=== PATIENT | male | born 1950 | race Caucasian/White ===

== ENCOUNTER 2020-12-24 08:52 | Day surgery (SDC) | payer MEDICARE, MEDICAID, SELFPAY ==
--- NOTE | 2020-12-24 06:56 | W.ANESPRE ---
General Info Date of Service Date Performed: 12/24/20 Height: 6 ft 1 in Weight: 108.862 kg Body Mass Index (BMI): 31.6 Surgical Procedure: Operation Date: 12/24/20 11:40 Proposed Procedures Side Surgeon p Cataract Extraction with IOL Implant Bobby Morrow MD Meds Allergies and Home Medications Allergies Allergy/AdvReac Type Severity Reaction Status Date / Time adhesive tape Allergy Unknown Unverified 12/24/20 09:13 cefuroxime Allergy Unknown Skin Rash Unverified 12/24/20 09:13 doxycycline Allergy Unknown Skin Rash Unverified 12/24/20 09:13 erythromycin base Allergy Unknown Skin Rash Unverified 12/24/20 09:13 moxifloxacin Allergy Unknown Unverified 12/24/20 09:13 silver sulfadiazine Allergy Unknown Unverified 12/24/20 09:13 Tetracyclines Allergy Unknown Skin Rash Unverified 12/24/20 09:13 trimethoprim Allergy Unknown Skin Rash Unverified 12/24/20 09:13 Durapore Allergy Unknown Uncoded 12/24/20 09:13 Tegaderm Allergy Unknown Uncoded 12/24/20 09:13 Home Medication Medication Instructions Recorded acetaminophen 500 mg PO Q6H PRN 12/19/20 albuterol sulfate 2 puff INHALATION Q6H PRN 12/19/20 ascorbic acid (vitamin C) 500 mg PO DAILY 12/19/20 aspirin [Aspir-81] 81 mg PO DAILY 12/19/20 benazepril 20 mg PO DAILY 12/19/20 cilostazol 100 mg PO BID 12/19/20 fenofibrate nanocrystallized 145 mg PO DAILY 12/19/20 ferrous sulfate 142 mg PO DAILY 12/19/20 finasteride 5 mg PO DAILY 12/19/20 gabapentin 600 mg PO HS 12/19/20 levothyroxine 137 mcg PO DAILY 12/19/20 metformin 500 mg PO BID 12/19/20 pantoprazole 40 mg PO BID 12/19/20 rivaroxaban [Xarelto] 20 mg PO DAILY 12/19/20 umeclidinium-vilanterol [Anoro 1 inh INHALATION DAILY 12/19/20 Ellipta] Current Visit Medications: Current Medications Generic Name Dose Route Start Last Admin Trade Name Freq PRN Reason Stop Dose Admin Acetaminophen 1,000 mg 12/24/20 06:00 Acetaminophen 500 Mg Tab PO Q4H PRN PRN Miscellaneous Medication 0 ml 12/24/20 06:00 Prednisolone 1%, Moxifloxacin 0.5%, Nepafenac 0.1% 5ml Btl OD DIRECTED [facility] Miscellaneous Medication 0 ml 12/24/20 06:00 Tropicam./Phenyleph. (1/2.5%) 5 Ml Btl OD DIRECTED [facility] Tetracaine HCl 0 ml 12/24/20 06:00 Tetracaine 0.5% 4 Ml Btl OD DIRECTED [facility] Medical History Medical History Anemia of chronic disease, persistent normocytic anemia/thrombocytosis Balanoposthitis Bilateral cataracts Bursitis Cellulitis COPD (chronic obstructive pulmonary disease) Degenerative lumbar spinal stenosis Dermatitis Diabetes mellitus with neuropathy Dropfoot Encounter for screening for malignant neoplasm of prostate Essential (primary) hypertension Fissure in skin of foot Fracture of right upper extremity with malunion GERD without esophagitis Hyperlipidemia Hypomagnesemia Hypothyroidism Left foot pain Lumbar spinal stenosis Nicotine dependence in remission Onychomycosis Osteoarthritis of both hips Peripheral edema Pes planovalgus Plantar fascial fibromatosis Posterior tibial tendonitis Radiculopathy, lumbar region Renal insufficiency Retention of urine, unspecified Rib fracture RLS (restless legs syndrome) Skin ulcer R leg venous stasis ulcer, debride left medial ankle per note Wound center q wk-May 2018 maggot in wound Sore in mouth Thrombocytosis Varicose veins of both lower extremities with complications Venous stasis Vitamin D deficiency Surgical History Surgical History History of esophagogastroduodenoscopy (EGD) History of lumbar laminectomy Hx of arthroscopy of knee Hx of arthroscopy of shoulder Hx of colonoscopy with polypectomy Hx of sinus surgery Hx of varicose vein ligation and stripping S/P excision of varicocele Tobacco Smoking/Tobacco Use Status: Former Tobacco Use Alcohol Alcohol Intake: former Substance Use Substance use type: does not use Vital Signs and Lab Results Vital Signs Most Recent Vital Signs in EMR: Temp Pulse Resp BP Pulse Ox 36.1 C L 67 16 154/81 H 99 12/24/20 09:05 12/24/20 09:05 12/24/20 09:05 12/24/20 09:05 12/24/20 09:05 Lab Results Blood Type / Crossmatch: No Data to Display Complete Blood Count: No Data to Display Complete Metabolic Panel: No Data to Display Liver Function Panel: No Data to Display Coagulation Panel: No Data to Display Cardiac Panel: No Data to Display Arterial Blood Gas: No Data to Display Venous Blood Gas: No Data to Display Pancreas Panel: No Data to Display Thyroid Panel: No Data to Display Infectious Disease: No Data to Display Blood Cultures: No Data to Display Toxicology Panel: No Data to Display Anesthesia Assessment and Plan Anesthesia History Personal History: No History of Anesthesia Complications Family History: No Family History of Anesthesia Complications Exercise Tolerance Exercise Tolerance: Metabolic Equivalents>4 Cardiac & Pulmonary Exam Cardiac Exam: Normal S1/S2 Heart Sounds Pulmonary Exam: Clear Bilateral Breath Sounds Airway Exam Known Difficult Airway: No Mallampati Class: 3 Mouth Opening: Normal (> 3cm) Thyromental Distance: Greater than 3 cm Facial Hair: Full Sanderson Neck Range of Motion: Limited ROM Neck Circumference: Normal Teeth Condition: Loose or Chipped ASA Classification ASA Score: ASA 2 Emergency Case?: No NPO Status NPO Status: NPO Clears >2 hours, Solids >8 hours Anesthesia Plan Resuscitation Status: Full Code Anesthesia Technique: MAC Anesthesia Airway Planned: Natural Airway Monitors Used: Standard Monitors Preoperative Comments:: 70 yo male for cataract removal. discussed risks, benefits, and alternatives to MKO, plan for no MKO sig PMHx: COPD, DM with neuropathy, HTN, hypothyroid, spinal stenosis, RL.
[2020-12-24 09:05] VITALS: BP 154/81; PULSE 67; RESP 16; TEMP 36.1; O2SAT 99
[2020-12-24] MEDS: Tropicam./Phenyleph. (1/2.5%) 5 ML BTL OD ×3 (09:11→09:25)
[2020-12-24 09:35] VITALS: BMI 31.6
[2020-12-24] MEDS: Tetracaine 0.5% 4 ML BTL OD (10:18)
[2020-12-24] MEDS: Povidone-Iodine Ophth 30 ML BTL (10:18)
[2020-12-24] MEDS: Lidocaine 2% Jelly 6 ML SYR (10:19)
[2020-12-24] MEDS: Balanced Salt Soln.-PLUS 500 ML BAG (10:28)
[2020-12-24] MEDS: Duovisc Viscoelastic System EACH 1 EACH (10:29)
[2020-12-24] MEDS: Lidocaine 1% Pres-Free 5 ML VIAL (10:31)
[2020-12-24] MEDS: Trypan Blue 0.06% 0.5 ML SYR (10:33)
[2020-12-24 10:51] VITALS: BP 144/86; PULSE 69; RESP 16; TEMP 36.3; O2SAT 97
--- NOTE | 2020-12-24 10:52 | ROE_ITS ---
Date of service: 12/24/20 Time of Service: 10:53 Operative Note Operative Note DATE OF PROCEDURE: 12/24/20 PRE-OP DIAGNOSIS: Dense nuclear/cortical cataract, right eye Poor red reflex, right eye secondary to cataract POST-OP DIAGNOSIS: same PROCEDURE: Cataract extraction using phacoemulsification with intraocular lens implantation, right eye, using capsular staining with Vision Blue SURGEON: Bobby Morrow ANESTHESIA TYPE: Local By Surgeon and MAC Refer to Anesthesia Record PATHOLOGY: none sent COMPLICATIONS: None Patient was transported to: same day Patient's condition: stable Implants: [employer] Rob[employer] / [employer] Tecnis [id number] Indications: Progressive visual loss due to cataract, right eye Procedure Description: CATARACT SURGERY OPERATIVE REPORT PREOPERATIVE DIAGNOSIS: 1. Nuclear/cortical cataract, right eye 2. Poor red reflex secondary to #1 POSTOPERATIVE DIAGNOSIS: Same OPERATION: 1. Cataract extraction using phacoemulsification with posterior chamber intraocular lens implant, right eye. 2. Capsular staining with Vision Blue IOL: IOL Manager Data Warehousing/Model: [employer] Robby / SOREN Tecnis [id number] IOL Power: + 20.0 diopters IOL Serial Number: [id number] Optic Diameter: 6.0mm Haptic/Overall Diameter: 13.0mm PHACO INFO: Hemal Centurion Vision System with OZil and Active Fluidics Cumulative Dispersed Energy (CDE): 15.44 seconds SURGEON: Bobby Morrow MD, AYAD ANESTHESIA: Monitored Anesthesia Care (MAC), with local sub-tenon's anesthetic infiltration COMPLICATIONS: None SPECIMENS: None INDICATIONS FOR PROCEDURE: The patient is a 70-year-old gentleman with history of diminished visual acuity in his right eye secondary to the development of dense nuclear and cortical cataract. He significantly symptomatic that he desires cataract surgery and attempt to improve and maximize his vision. Of note, he has history of moxif loxacin allergy, causing a rash with oral moxifloxacin. The option of cataract surgery was offered to the patient and he wished to proceed. PROCEDURE: The correct surgical eye was identified and marked as the right eye and the pupil was dilated in the preoperative area using mydriatics and cycloplegics. The dilated pupil size was 5.5 mm. He elected to proceed without oral sedation.. The patient was brought to the operating room where cardiopulmonary monitoring was instituted and surgical time-out was performed, confirming the correct operative eye and IOL power. Topical anesthesia was administered and ophthalmic povidone-iodine 5% was instilled into the conjunctival fornices. Lidocaine gel was applied to the cornea and the yves-ocular area was prepped with Betadine 10% solution and draped in the usual sterile fashion for intraocular surgery, including an aperture drape. A Tegaderm transparent film dressing was cut in half and used to cover the lashes and lid margins. Care was taken to sequester the lashes and lid margins under the Tegaderm dressing. A lid speculum was placed between the lids of the operative eye and the Tanya-Capri operating microscope was maneuvered into position. Alek scissors were then used to make a conjunctival buttonhole approximately 6mm posterior to the limbus in the inferonasal quadrant. Blunt dissection was carried out to expose bare sclera, and a blunt-tipped sub-tenon?s anesthesia cannula was introduced and passed posteriorly along the globe where non- preserved plain lidocaine was injected into posterior sub-Tenon?s space. A sideport knife was used to make a paracentesis port inferotemporally. Intraocular phenylephrine/lidocaine was injected into the anterior chamber. Air was injected into the anterior chamber, followed by Vision Blue, which was painted over the anterior capsule and then irrigated out with BSS. The anterior chamber was filled with viscoelastic. A 2.4mm keratome knife was used to create a half-thickness groove at the limbus and then to construct a three-plane near- clear corneal tunnel extending 2.0mm into clear cornea superiortemporally. A flap was raised on the anterior capsule and capsulorhexis forceps were used to complete a continuous curvilinear capsulorhexis of 5.0 mm. Balanced salt solution was then used to perform cortical cleaving hydrodissection and nuclear hydrodelineation until the lens could be freely rotated within the capsular bag. The lens nucleus was then disassembled and removed within the capsular bag and iris plane using phacoemulsification. Res idual cortical material was removed using the I/A handpiece. The posterior capsule was carefully polished to remove as much residual lens epithelial cells as safely possible. The capsular bag was then inflated and the anterior chamber deepened with viscoelastic. The lens implant described above was inserted into the capsular bag using the SOREN Nulato Injector. A Kuglen hook was used to dial the IOL into position. Residual viscoelastic was then removed first from posterior to the IOL, then from the anterior chamber using the I/A handpiece. The lens implant was noted to center nicely within the capsular bag. The incisions were stromally hydrated, and the anterior chamber was reformed using BSS. The incisions were checked with a Weck spear and found to be secure. Several drops of ophthalmic povidone- iodine 5% were then applied to the eye followed by two drops of Imprimis combination prednisolone/moxifloxacin/nepafenac solution. The drapes were removed and a clear plastic protective eye shield was placed over the eye. The patient was then returned to Same Day Surgery in stable condition.
--- NOTE | 2020-12-24 10:52 | W.PM.DSUDISC ---
Discharge Plan Disposition Patient Disposition: HOME Condition: Good Discharge Details Reason For Visit: Cataract Attending Provider: Bobby Morrow Primary Care Provider: Brenda Hoffman Home Meds and New Rx's Prescriptions: No Action cilostazol 100 mg tablet 100 mg PO BID RF: 0 levothyroxine 137 mcg tablet 137 mcg PO DAILY RF: 0 aspirin [Aspir-81] 81 mg Tablet,Delayed Release (Dr/Ec) 81 mg PO DAILY RF: 0 acetaminophen 500 mg Tablet 500 mg PO Q6H PRNRF: 0 ascorbic acid (vitamin C) 500 mg Tablet 500 mg PO DAILY RF: 0 pantoprazole 40 mg tablet,delayed release (DR/EC) 40 mg PO BID RF: 0 gabapentin 300 mg capsule 600 mg PO HS RF: 0 benazepril 20 mg tablet 20 mg PO DAILY RF: 0 albuterol sulfate 90 mcg/actuation Hfa Aerosol Inhaler 2 puff INHALATION Q6H PRNRF: 0 metformin 500 mg tablet extended release 24 hr 500 mg PO BID RF: 0 finasteride 5 mg tablet 5 mg PO DAILY RF: 0 fenofibrate nanocrystallized 145 mg tablet 145 mg PO DAILY RF: 0 ferrous sulfate 142 mg (45 mg iron) Tablet Extended Release 142 mg PO DAILY RF: 0 Xarelto 20 mg tablet 20 mg PO DAILY RF: 0 Anoro Ellipta 62.5-25 mcg/actuation blister with device 1 inh INHALATION DAILY RF: 0 Discharge Instructions Stand Alone Forms: Post-op Topical Cataract, Janny Torres (DSU) Discharge Orders Discharge Orders: Discharge Order (Routine); Ordered 12/24/20 Ordered By: Bobby Morrow DS: Diagnosis Discharge Diagnosis (1) Nuclear sclerotic cataract of right eye: Status: Resolved (2) Cortical cataract of right eye: Status: Resolved
--- NOTE | 2020-12-24 11:14 | W.ANESPOSTOP ---
Postoperative Evaluation Date, Time and Location Date Performed: 12/24/20 Time Performed: 11:14 Patient Location: Day Surgery Unit Vital Signs Most Recent Imported Vital Signs: Most Recent Vital Signs Temp Pulse Resp BP Pulse Ox 36.3 C L 69 16 144/86 H 97 12/24/20 10:51 12/24/20 10:51 12/24/20 10:51 12/24/20 10:51 12/24/20 10:51 Pain Score Most Recent Pain Score: Most Recent Pain Score Pain Level 0 12/24/20 10:51 Assessment Mental Status: Awake (Alert & Oriented to Patient Baseline) Airway and Respiratory Function: Patent airway with normal (patient baseline) respiratory exam Cardiovascular Function: Hemodynamically Stable Hydration Status: Adequately Hydrated Nausea & Vomiting: No Nausea or Vomiting Pain: Pt. Denies Any Pain Peripheral Nerve Block: Patient did not receive a nerve block
== END 2020-12-24 11:42 | disposition home or self-care (01) ==
PROVIDERS: PCP Physician Assistant; Visit Provider Ophthalmology
PROC: (CPT 66984; principal; 2020-12-24 11:30)
DX: H25.11 Age-related nuclear cataract, right eye (principal); E11.42 Type 2 diabetes mellitus with diabetic polyneuropathy; I10 Essential (primary) hypertension
CPT/HCPCS: 66984; V2632

== ENCOUNTER 2021-01-04 02:45 | Outpatient (CLI) | payer MEDICARE, SELFPAY ==
[2021-01-04 12:57] LABS: Source Nasal/Nares
[2021-01-04 16:58] LABS: COVID-19 PCR Negative (Negative)
== END 2021-01-04 02:46 | disposition home or self-care (01) ==
LOC: LBO 02:45
PROVIDERS: PCP Physician Assistant; Visit Provider Ophthalmology
DX: Z20.822 Contact with and (suspected) exposure to COVID-19 (principal); Z01.812 Encounter for preprocedural laboratory examination
CPT/HCPCS: 87635

== ENCOUNTER 2021-01-07 11:09 | Day surgery (SDC) | payer MEDICARE, MEDICAID, SELFPAY ==
[2021-01-07 11:31] VITALS: BP 156/92; PULSE 74; RESP 16; TEMP 36.2; O2SAT 98
--- NOTE | 2021-01-07 11:37 | W.ANESPRE ---
General Info Date of Service Date Performed: 01/07/21 Height: 6 ft 1 in Weight: 106.4 kg Body Mass Index (BMI): 30.9 Surgical Procedure: Operation Date: 01/07/21 14:40 Proposed Procedures Side Surgeon p Cataract Extraction with IOL Implant Bobby Morrow MD Meds Allergies and Home Medications Allergies Allergy/AdvReac Type Severity Reaction Status Date / Time adhesive tape Allergy Unknown Unverified 01/03/21 15:38 cefuroxime Allergy Unknown Skin Rash Unverified 01/03/21 15:38 doxycycline Allergy Unknown Skin Rash Unverified 01/03/21 15:38 erythromycin base Allergy Unknown Skin Rash Unverified 01/03/21 15:38 moxifloxacin Allergy Unknown Unverified 01/03/21 15:38 silver sulfadiazine Allergy Unknown Unverified 01/03/21 15:38 Tetracyclines Allergy Unknown Skin Rash Unverified 01/03/21 15:38 trimethoprim Allergy Unknown Skin Rash Unverified 01/03/21 15:38 Durapore Allergy Unknown Uncoded 01/03/21 15:38 Tegaderm Allergy Unknown Uncoded 01/03/21 15:38 Home Medication Medication Instructions Recorded acetaminophen 500 mg PO Q6H PRN 12/19/20 albuterol sulfate 2 puff INHALATION Q6H PRN 12/19/20 ascorbic acid (vitamin C) 500 mg PO DAILY 12/19/20 aspirin [Aspir-81] 81 mg PO DAILY 12/19/20 benazepril 20 mg PO DAILY 12/19/20 cilostazol 100 mg PO BID 12/19/20 fenofibrate nanocrystallized 145 mg PO DAILY 12/19/20 ferrous sulfate 142 mg PO DAILY 12/19/20 finasteride 5 mg PO DAILY 12/19/20 gabapentin 600 mg PO HS 12/19/20 levothyroxine 137 mcg PO DAILY 12/19/20 metformin 500 mg PO BID 12/19/20 pantoprazole 40 mg PO BID 12/19/20 rivaroxaban [Xarelto] 20 mg PO DAILY 12/19/20 umeclidinium-vilanterol [Anoro 1 inh INHALATION DAILY 12/19/20 Ellipta] Current Visit Medications: Current Medications Generic Name Dose Route Start Last Admin Trade Name Freq PRN Reason Stop Dose Admin Acetaminophen 1,000 mg 01/07/21 06:00 Acetaminophen 500 Mg Tab PO Q4H PRN PRN Miscellaneous Medication 0 ml 01/07/21 06:00 Prednisolone 1%, Moxifloxacin 0.5%, Nepafenac 0.1% 5ml Btl OS DIRECTED [facility] Miscellaneous Medication 0 ml 01/07/21 06:00 Tropicam./Phenyleph. (1/2.5%) 5 Ml Btl OS DIRECTED [facility] Tetracaine HCl 0 ml 01/07/21 06:00 Tetracaine 0.5% 4 Ml Btl OS DIRECTED [facility] PFSH Active Problems Active Problems: Problem Status Onset Code Cortical cataract of left eye H26.9 Nuclear sclerotic cataract of left eye H25.12 Nuclear sclerotic cataract of right eye H25.11 Cortical cataract of right eye H26.9 Medical History Medical History Anemia of chronic disease, persistent normocytic anemia/thrombocytosis Balanoposthitis Bilateral cataracts Bursitis Cellulitis COPD (chronic obstructive pulmonary disease) Degenerative lumbar spinal stenosis Dermatitis Diabetes mellitus with neuropathy Dropfoot Encounter for screening for malignant neoplasm of prostate Essential (primary) hypertension Fissure in skin of foot Fracture of right upper extremity with malunion GERD without esophagitis Hyperlipidemia Hypomagnesemia Hypothyroidism Left foot pain Lumbar spinal stenosis Nicotine dependence in remission Onychomycosis Osteoarthritis of both hips Peripheral edema Pes planovalgus Plantar fascial fibromatosis Posterior tibial tendonitis Radiculopathy, lumbar region Renal insufficiency Retention of urine, unspecified Rib fracture RLS (restless legs syndrome) Skin ulcer R leg venous stasis ulcer, debride left medial ankle per note Wound center q wk-May 2018 maggot in wound Sore in mouth Thrombocytosis Varicose veins of both lower extremities with complications Venous stasis Vitamin D deficiency Surgical History Surgical History History of esophagogastroduodenoscopy (EGD) History of lumbar laminectomy Hx of arthroscopy of knee Hx of arthroscopy of shoulder Hx of colonoscopy with polypectomy Hx of sinus surgery Hx of varicose vein ligation and stripping S/P excision of varicocele Tobacco Smoking/Tobacco Use Status: Former Tobacco Use Alcohol Alcohol Intake: former Substance Use Substance use type: does not use Vital Signs and Lab Results Vital Signs Most Recent Vital Signs in EMR: Most Recent Vital Signs Temp Pulse Resp BP Pulse Ox 36.2 C L 74 16 156/92 H 98 01/07/21 11:31 01/07/21 11:31 01/07/21 11:31 01/07/21 11:31 01/07/21 11:31 Point of Care Results Point of Care Results: Blood sugar 133 Lab Results Blood Type / Crossmatch: No Data to Display Complete Blood Count: No Data to Display Complete Metabolic Panel: No Data to Display Liver Function Panel: No Data to Display Coagulation Panel: No Data to Display Cardiac Panel: No Data to Display Arterial Blood Gas: No Data to Display Venous Blood Gas: No Data to Display Pancreas Panel: No Data to Display Thyroid Panel: No Data to Display Infectious Disease: Coronavirus (COVID-19)(PCR) Negative (Negative) 01/04/21 10:35 01/04/21 Coronavirus 2019 Source Nasal/Nares 01/04/21 10:35 01/04/21 Blood Cultures: No Data to Display Toxicology Panel: No Data to Display Anesthesia Assessment and Plan Anesthesia History Personal History: No History of Anesthesia Complications Family History: No Family History of Anesthesia Complications Exercise Tolerance Exercise Tolerance: Metabolic Equivalents>4 Cardiac & Pulmonary Exam Cardiac Exam: Normal S1/S2 Heart Sounds Pulmonary Exam: Clear Bilateral Breath Sounds Airway Exam Known Difficult Airway: No Mallampati Class: 3 Mouth Opening: Normal (> 3cm) Thyromental Distance: Greater than 3 cm Facial Hair: Full Sanderson Neck Range of Motion: Limited ROM Neck Circumference: Normal Teeth Condition: Loose or Chipped ASA Classification ASA Score: ASA 2 Emergency Case?: No NPO Status NPO Status: NPO Clears >2 hours, Solids >8 hours Anesthesia Plan Resuscitation Status: Full Code Anesthesia Technique: MAC Anesthesia Airway Planned: Natural Airway Monitors Used: Standard Monitors Preoperative Comments:: 70 yo male for cataract removal. discussed risks, benefits, and alternatives to MKO, plan for no MKO sig PMHx: COPD, DM with neuropathy, HTN, hypothyroid, spinal stenosis, RL.
[2021-01-07 11:41] VITALS: BMI 30.9
[2021-01-07] MEDS: Tropicam./Phenyleph. (1/2.5%) 5 ML BTL OS ×3 (11:43→11:54)
[2021-01-07] MEDS: Tetracaine 0.5% 4 ML BTL OS (12:45)
[2021-01-07] MEDS: Balanced Salt Soln.-PLUS 500 ML BAG (12:46)
[2021-01-07] MEDS: Duovisc Viscoelastic System EACH 1 EACH (12:46)
[2021-01-07] MEDS: Lidocaine 2% Jelly 6 ML SYR (12:47)
[2021-01-07] MEDS: Lidocaine 1% Pres-Free 5 ML VIAL (12:47)
[2021-01-07] MEDS: Povidone-Iodine Ophth 30 ML BTL (12:49)
[2021-01-07 13:03] VITALS: BP 152/100; PULSE 74; RESP 16; TEMP 36.5; O2SAT 98
--- NOTE | 2021-01-07 13:04 | W.PM.DSUDISC ---
Discharge Plan Disposition Patient Disposition: HOME Condition: Good Discharge Details Attending Provider: Bobby Morrow Primary Care Provider: Brenda Hoffman Home Meds and New Rx's Prescriptions: No Action cilostazol 100 mg tablet 100 mg PO BID RF: 0 levothyroxine 137 mcg tablet 137 mcg PO DAILY RF: 0 aspirin [Aspir-81] 81 mg Tablet,Delayed Release (Dr/Ec) 81 mg PO DAILY RF: 0 acetaminophen 500 mg Tablet 500 mg PO Q6H PRNRF: 0 ascorbic acid (vitamin C) 500 mg Tablet 500 mg PO DAILY RF: 0 pantoprazole 40 mg tablet,delayed release (DR/EC) 40 mg PO BID RF: 0 gabapentin 300 mg capsule 600 mg PO HS RF: 0 benazepril 20 mg tablet 20 mg PO DAILY RF: 0 albuterol sulfate 90 mcg/actuation Hfa Aerosol Inhaler 2 puff INHALATION Q6H PRNRF: 0 metformin 500 mg tablet extended release 24 hr 500 mg PO BID RF: 0 finasteride 5 mg tablet 5 mg PO DAILY RF: 0 fenofibrate nanocrystallized 145 mg tablet 145 mg PO DAILY RF: 0 ferrous sulfate 142 mg (45 mg iron) Tablet Extended Release 142 mg PO DAILY RF: 0 Xarelto 20 mg tablet 20 mg PO DAILY RF: 0 Anoro Ellipta 62.5-25 mcg/actuation blister with device 1 inh INHALATION DAILY RF: 0 Discharge Instructions Stand Alone Forms: Post-op Topical Cataract, Janny Torres (DSU) Discharge Orders Discharge Orders: Discharge Order (Routine); Ordered 01/07/21 Ordered By: Bobby Morrow DS: Diagnosis Discharge Diagnosis (1) Cortical cataract of left eye: Status: Resolved (2) Nuclear sclerotic cataract of left eye: Status: Resolved
--- NOTE | 2021-01-07 13:05 | W.PM.OP ---
Date of service: 01/07/21 Time of Service: 13:05 Operative Note Operative Note DATE OF PROCEDURE: 01/07/21 PRE-OP DIAGNOSIS: Nuclear/cortical cataract, left eye POST-OP DIAGNOSIS: same PROCEDURE: Cataract extraction using phacoemulsification with intraocular lens implant, left eye SURGEON: Bobby Morrow ANESTHESIA TYPE: Local By Surgeon and MAC Refer to Anesthesia Record PATHOLOGY: none sent COMPLICATIONS: None Patient was transported to: same day Patient's condition: stable Implants: Rob[employer] / [employer] Tecnis [id number] Indications: Progressive decreased vision due to cataract, left eye, with poor red reflex Procedure Description: CATARACT SURGERY OPERATIVE REPORT PREOPERATIVE DIAGNOSIS: 1. Nuclear/cortical cataract, left eye POSTOPERATIVE DIAGNOSIS: Same OPERATION: 1. Cataract extraction using phacoemulsification with posterior chamber intraocular lens implant, left eye. IOL: IOL Sodium Chlorite Operator/Model: [employer] Robby / SOREN Tecnis [id number] IOL Power: + 21.0 diopters IOL Serial Number: [id number] Optic Diameter: 6.0 mm Haptic/Overall Diameter: 13.0 mm PHACO INFO: Hemal [employer]ion Vision System with OZil and Active Fluidics Cumulative Dispersed Energy (CDE): 12.40 seconds SURGEON: Bobby Morrow MD, AYAD ANESTHESIA: Monitored A [facility] (MAC), with local sub-tenon's anesthetic infiltration COMPLICATIONS: None SPECIMENS: None INDICATIONS FOR PROCEDURE: The patient is a 70-year-old gentleman with history of diminished visual acuity in left eye secondary to the development of nuclear and cortical cataract. He has already undergone cataract surgery in the right eye and is doing well postoperatively. He now presents for cataract surgery in the left eye. PROCEDURE: The correct surgical eye was identified and marked as the left eye and the pupil was dilated in the preoperative area using mydriatics and cycloplegics. The dilated pupil size was 6.0 mm. He elected to proceed without oral sedation. The patient was brought to the operating room where cardiopulmonary monitoring was instituted and surgical time-out was performed, confirming the correct operative eye and IOL power. Topical anesthesia was administered and ophthalmic povidone-iodine 5% was instilled into the conjunctival fornices. Lidocaine gel was applied to the cornea and the yves-ocular area was prepped with Betadine 10% solution and draped in the usual sterile fashion for intraocular surgery, including an aperture drape. A Tegaderm transparent film dressing was cut in half and used to cover the lashes and lid margins. Care was taken to sequester the lashes and lid margins under the Tegaderm dressing. A lid speculum was placed between the lids of the operative eye and the Tanya-Capri operating microscope was maneuvered into position. Alek scissors were then used to make a conjunctival buttonhole approximately 6mm posterior to the limbus in the inferonasal quadrant. Blunt dissection was carried out to expose bare sclera, and a blunt-tipped sub-tenon?s anesthesia cannula was introduced and passed posteriorly along the globe where non-preserved plain lidocaine was injected into posterior sub-Tenon?s space. A sideport knife was used to make a paracentesis port superiorly/superiortemporally. Intraocular phenylephrine/lidocaine was injected int the anterior chamber.. The anterior chamber was filled with viscoelastic. A 2.4mm keratome knife was used to create a half-thickness groove at the limbus and then to construct a three-plane near-clear corneal tunnel extending 2.0mm into clear cornea at the 3:00 position. A flap was raised on the anterior capsule and capsulorhexis forceps were used to complete a continuous curvilinear capsulorhexis of 5.0 mm. Balanced salt solution was then used to perform cortical cleaving hydrodissection and nuclear hydrodelineation until the lens could be freely rotated within the capsular bag. The lens nucleus was then disassembled and removed within the capsular bag and iris plane using phacoemulsification. Residual cortical material was removed using the 45-degree angled silicone I/A tip with 0.3mm port. The posterior capsule was carefully polished to remove as much residual lens epithelial cells as safely possible. The capsular bag was then inflated and the anterior chamber deepened with viscoelastic. The lens implant described above was inserted into the capsular bag using the SOREN [place] Injector. A Kuglen hook was used to dial the IOL into position. Residual viscoelastic was then removed first from posterior to the IOL, then from the anterior chamber using the I/A handpiece. The lens implant was noted to center nicely within the capsular bag. The incisions were stromally hydrated, and the anterior chamber was reformed using BSS. The incisions were checked with a Weck spear and found to be secure. Several drops of ophthalmic povidone-iodine 5% were then applied to the eye followed by two drops of Imprimis combination prednisolone/moxifloxacin/nepafenac solution. The drapes were removed and a clear plastic protective eye shield was placed over the eye. The patient was then returned to Same Day Surgery in stable condition.
--- NOTE | 2021-01-07 14:04 | W.ANESPOSTOP ---
Postoperative Evaluation Date, Time and Location Date Performed: 01/07/21 Time Performed: 13:05 Patient Location: Day Surgery Unit Vital Signs Most Recent Imported Vital Signs: Most Recent Vital Signs Temp Pulse Resp BP Pulse Ox 36.5 C 74 16 152/100 H 98 01/07/21 13:03 01/07/21 13:03 01/07/21 13:03 01/07/21 13:03 01/07/21 13:03 Pain Score Most Recent Pain Score: Most Recent Pain Score Pain Level 0 01/07/21 13:03 Assessment Mental Status: Awake (Alert & Oriented to Patient Baseline) Airway and Respiratory Function: Patent airway with normal (patient baseline) respiratory exam Cardiovascular Function: Hemodynamically Stable Hydration Status: Adequately Hydrated Nausea & Vomiting: No Nausea or Vomiting Pain: Pt. Denies Any Pain Peripheral Nerve Block: Patient did not receive a nerve block
== END 2021-01-07 13:25 | disposition home or self-care (01) ==
PROVIDERS: PCP Physician Assistant; Visit Provider Ophthalmology
PROC: (CPT 66984; principal; 2021-01-07 14:30)
DX: H25.12 Age-related nuclear cataract, left eye (principal); E11.40 Type 2 diabetes mellitus with diabetic neuropathy, unspecified; J44.9 Chronic obstructive pulmonary disease, unspecified
CPT/HCPCS: 66984; V2632

== ENCOUNTER 2021-06-12 12:58 | Outpatient (REF) | payer MEDICARE, MEDICAID, SELFPAY ==
--- NOTE | 2021-06-12 11:45 | ORMUBX_PTH ---
PATIENT: Mitchel Henry LOC: [facility] U#:[id number] AGE/SX: 71/M ROOM: RE06/12/[address]: Jr Watkins MD : 1950 BED: DIS: 06/12/2021 SPEC #: [id number] RECD: 06/12/21 18:04 STATUS: MARGARITO RESarath #: [id number] INES: 06/12/21 11:[address]: Jr Watkins DEPT: Surgical Specimen RECD BY: Kathy Giron ENTERED: 06/12/21 18:09 SP TYPE: ORMUBX OTHR DR: Brenda Hoffman Tissues: 1 - MUCOSA, NOS Procedures: GROSS AND MICRO LEVEL 4 Comments: [id number] (SUBMITTED IN (CISCO'S)TISSUE FIXATURE ALSO)
== END 2021-06-12 12:59 | disposition home or self-care (01) ==
LOC: LBN 12:58
PROVIDERS: PCP Physician Assistant; Visit Provider Otolaryngology
DX: K12.30 Oral mucositis (ulcerative), unspecified (principal)
CPT/HCPCS: 88305